=== PATIENT | female | born 1960 | race African-American/Black ===

== ENCOUNTER 2022-06-27 07:06 | Emergency (ER) | payer OTHER ==
[~2022-06-27] VITALS: Ht 170.2 cm; Wt 81.6 kg
--- NOTE | 2022-06-27 07:38 | NUR ---
Patient AOx4 able to express her concerns. Patient stable, discussed plan of care, pt verbalized agreement. Will continue to monitor throughout shift and provide care as needed.
--- NOTE | 2022-06-27 07:43 | NUR ---
DR JUAREZ AT BEDSIDE FOR EVAL PT PUT ON MONITOR AND PULSE CHANGE INTO GOWN. NURSING CARE CONTINUES. AWAITIMNG FOR MD ORDERS
[2022-06-27] MEDS ORDERED: HYDROCODONE/APAP 5/325MG TABLET ONE (07:47)
--- NOTE | 2022-06-27 07:58 | NUR ---
Pt out for CT scan
[2022-06-27] MEDS ORDERED: HYDROCODONE/APAP 5/325MG TABLET PO ONE (08:00)
--- NOTE | 2022-06-27 08:15 | NUR ---
md was asked regarding neck collar,if soft or hard and replied, " not at this moment"
--- NOTE | 2022-06-27 08:35 | NUR ---
PT BACK FROM CT
--- NOTE | 2022-06-27 10:09 | NUR ---
PA AT BEDSIDE EXPKLAINED THE RESULTS OF THE IMAGE, TECH APPLIED KNEE BANDAGE
[2022-06-27 10:23] VITALS: BP 130/65
[2022-06-27] MEDS ORDERED: IBUPROFEN 600 MG TABLET PO ONE (10:30)
== END 2022-06-27 10:27 | disposition home or self-care (01) ==
LOC: ER 07:22
DX: S89.91XA Unspecified injury of right lower leg, initial encounter (principal); M54.2 Cervicalgia; M54.6 Pain in thoracic spine; M54.50 Low back pain, unspecified; I10 Essential (primary) hypertension; V43.92XA Unspecified car occupant injured in collision with other type car in traffic accident, initial encounter; Y93.89 Activity, other specified; Y92.89 Other specified places as the place of occurrence of the external cause; Y99.8 Other external cause status
CPT/HCPCS: 70450-TC; 72125-TC; 72128-TC; 72131-TC; 73564-TC